=== PATIENT | female | born 1965 | race Caucasian/White ===

== ENCOUNTER 2018-11-20 11:51 | Emergency (ER) | payer BC, SELFPAY ==
[2018-11-20 11:59] VITALS: BP 124/66; PULSE 74; RESP 16; TEMP 36.5; O2SAT 98
[2018-11-20] MEDS: Balanced Salt Solution 15 ML BTL OP (13:01)
[2018-11-20] MEDS: Erythromycin Ophth Oint 3.5 GM TUBE OP (13:01)
--- NOTE | 2018-11-20 13:39 | ED.GENADUL_ITS ---
Discharge Plan Disposition Patient Disposition: HOME Condition: Stable Discharge Details Chief Complaint: EyeProblem Clinical Impression: Unspecified injury of right eye and orbit, initial encounter Primary Care Provider: Qiana Santos ED Provider: Ruben Elizabeth Home Meds and New Rx's Prescriptions: No Action cholecalciferol (vitamin D3) 5,000 unit/mL drops 5,000 unit PO DAILY RF: 0 magnesium 30 mg tablet 30 mg PO DAILY RF: 0 Adult 50+ Probiotic 4 billion cell capsule 4,000 mmu cells PO DAILY RF: 0 Antacid Ultra Strength 430 mg calcium (1,000 mg) tablet,chewable PO RF: 0 vitamin B complex capsule 1 cap PO DAILY RF: 0 citalopram 10 mg tablet 10 mg PO DAILY Qty: 60 RF: 0 estradiol 0.5 mg tablet 0.5 mg PO DAILY Qty: 90 RF: 0 Discharge Instructions Instructions: Erythromycin (Into the eye), Corneal Abrasion (ED) Additional Instructions: Please use the provided eye ointment 4 times daily for the next 5 days. It is strongly encourage that you follow-up for reassessment of your eye in 24 hours by specialist. If you are having any difficulty with this please contact care management or [facility] directly for arrangement of reassessment. Stand Alone Forms: Work Release Referrals: [facility] [Outside] Discharge Data Discharge Date/Time-TO BE ENTERED AT DEPARTURE: 11/20/18 14:00 Medical Decision Making Patient presenting to the emergency department for chief complaint of right eye injury. Patient states on Wednesday her cat was lying close to her and was startled when he got up to run it actually scratched the lateral aspect of her right eye. Patient thought this was minor but this morning she woke up with crusting and drainage to the right eye and significant increase of redness. Patient denies any other injury or trauma. Patient has diffuse injection and erythema to the sclera and conjunctive a. Good lamp and slit lamp examination do not show an obvious area of dye uptake but slightly it does show diffuse inflammatory changes and irritation. Patient states that she has significant difficulty with eyedrops so patient was placed up on erythromycin ointment 4 times daily for 5 days but given type of trauma and significant erythema she was informed that she should follow-up for a reassessment tomorrow with her case technician. Patient does state that she has an case technician in [place] but lives in [facility]. Patient was given [facility] contact information if she is unable to obtain appointment she was given care management contact information to help arrange appointment if necessary. Patient does state that she had a tetanus within the last 3 years. HPI General Mode of arrival: ambulatory . Date/Time Provider Initiated Documentation: 11/20/18 12:01 . Limitations to Documentation: no limitations . Information obtained by: patient and RN notes reviewed . History of Present Illness 53 year old F presents to the emergency department with the chief complaint of right eye injury, described as moderate, with intensity rated at 6. Quality is described as aching and sharp, and is localized to the eyes and right. Patient started experiencing this day(s) (3) and it has been constant. No relieving factors improve symptom(s), Patient notes no other symptoms.. Patient did receive the following treatments prior to arrival, none Related Data Home Medications Medication Instructions Recorded Confirmed calcium carbonate 430 mg calcium PO tab 11/22/18 11/22/18 (1,000 mg) chewable tablet cholecalciferol (vitamin D3) 5,000 5,000 unit PO DAILY 11/22/18 11/22/18 unit/mL oral drops citalopram 10 mg tablet 10 mg PO DAILY #60 tab 11/22/18 11/22/18 lactobacillus combination no.9 4 4,000 mmu cells PO DAILY 11/22/18 11/22/18 billion cell capsule magnesium 30 mg tablet 30 mg PO DAILY 11/22/18 11/22/18 vitamin B complex capsule 1 cap PO DAILY 11/22/18 11/22/18 estradiol 0.5 mg tablet 0.5 mg PO DAILY #90 tab-cap 11/23/18 Previous Rx's Medication Instructions Recorded citalopram 10 mg tablet 10 mg PO DAILY #60 tab 11/22/18 estradiol 0.5 mg tablet 0.5 mg PO DAILY #90 tab-cap 11/23/18 Allergies Allergy/AdvReac Type Severity Reaction Status Date / Time No Known Allergies Allergy Unverified 11/22/18 11:30 General Stated Complaint: EyeProblem JOANN: 4 Review of Systems Constitutional Denies body ache(s), Denies chills, Denies fever(s) and Denies headache(s) Eyes Reports as per HPI, Denies blurry vision and Denies loss of vision ENT Denies headache(s) Integumentary/Breasts Denies rash Neurologic Denies headache(s) and Denies loss of vision PFSH Surgical History vein stripping Social History Smoking/Tobacco Use Status: Never Drug use: Never Do you feel safe in your relationship?: Yes Exam Const General: cooperative, no acute distress and not ill appearing Orientation: alert, awake and oriented x3 HENMT Mouth: moist mucous membranes Eyes Visual Rothman: normal visual rothman by confrontation Alignment and Position: alignment normal Periorbital: periorbital findings normal Eyelids: eyelids normal Conjunctivae: conjunctival abnormality right conjunctival injection diffuse Sclera: scleral abnormality right scleral injection diffuse and lateral and scleral tenderness Cornea: corneas normal Pupils: PERRL, normal by confrontation and accommodation normal EOM: EOM intact bilaterally and No nystagmus Direct ophthalmoscopy: anterior chamber normal Resp Effort & Inspection: normal respiratory effort, able to speak in complete sentences and no respiratory distress Neuro General: alert, awake and oriented x3 Cranial Nerves: no nystagmus Course Vital Signs Temperature 36.5 C 11/20/18 11:59 Pulse 74 11/20/18 11:59 Respiratory Rate 16 11/20/18 11:59 Blood Pressure 124/66 11/20/18 11:59 Pulse Oximetry 98 11/20/18 11:59 Temperature 36.5 C 11/20/18 11:59 Temperature Source Temporal Artery Scan 11/20/18 11:59 Pulse 74 11/20/18 11:59 Respiratory Rate 16 11/20/18 11:59 Respiratory Effort Non-Labored 11/20/18 12:01 Blood Pressure 124/66 11/20/18 11:59 Blood Pressure Position Sitting 11/20/18 11:59 Pulse Oximetry 98 11/20/18 11:59 Oxygen Delivery Method Room Air 11/20/18 11:59 Oxygen Flow Rate 0 11/20/18 11:59
== END 2018-11-20 14:00 | disposition home or self-care (01) ==
PROVIDERS: Emergency Provider Nurse Practitioner Family; PCP Nurse Practitioner Family
DX: S05.91XA Unspecified injury of right eye and orbit, initial encounter (principal)
CPT/HCPCS: 99283

== ENCOUNTER 2018-12-16 02:26 | Outpatient (CLI) | payer BC, SELFPAY ==
--- NOTE | 2018-12-16 09:10 | DI.MAMMO_ITS ---
SYMPTOMS/DIAGNOSIS: SCREENING, Z12.31 MAMMOGRAM: Mammograms were interpreted according to the usual protocol including computer analysis with CAD system, tomosynthesis and C view imaging. The breasts are heterogeneously dense. No dominant mass or clumped microcalcification is identified in either breast. The previously noted well circumscribed upper outer quadrant mass of the left breast is markedly decreased in size and this was reportedly previously identified as a cyst. No new mass seen. No clumped microcalcification seen. No other significant change in appearance in comparison with previous examinations including September 2016. CONCLUSION: No specific evidence of malignancy at this time. Routine screening examinations are suggested at yearly intervals in this age group according to the ACS/ACR guidelines. Category I. Breast density Category C. MQSA ASSESSMENT OF FINDINGS: Negative. Category 1. Patient will receive a letter notifying them of these results. Bi-RADS category C. The breasts are heterogeneously dense, which may obscure small masses.
== END 2018-12-16 02:46 ==
PROVIDERS: PCP Nurse Practitioner Family; Visit Provider Obstetrics & Gynecology
DX: Z12.31 Encounter for screening mammogram for malignant neoplasm of breast (principal); N60.02 Solitary cyst of left breast
CPT/HCPCS: 77063; 77067

== ENCOUNTER 2020-01-03 14:34 | Outpatient (REF) | payer BC, SELFPAY ==
[2020-01-03 15:17] LABS: Bilirubin Negative (Negative); Blood Trace-lysed (Negative); Clarity Clear (Clear); Glucose Negative (Negative); Ketones Negative (Negative); Leukocyte Esterase Negative (Negative); Nitrite Negative (Negative); Specific Gravity >= 1.030 (1.005-1.025); Urobilinogen 0.2 EU/dL (Up TO 0.2)
[2020-01-03 15:35] LABS: Bacteria Negative HPF (Negative); C & S Indicated? No; Casts Negative LPF (Negative); Crystals Negative HPF (Negative); Epithelial Cells Rare HPF (Negative); Mucus Negative (Negative); Other Cells Negative (Negative); RBC 0-2 HPF (0-2); WBC 0-2 HPF (0-5)
== END 2020-01-03 14:54 ==
LOC: NCHCN 14:34
PROVIDERS: PCP Nurse Practitioner Family; Visit Provider Family Medicine
DX: N39.41 Urge incontinence (principal)
CPT/HCPCS: 81003; 81015

== ENCOUNTER 2020-03-13 18:02 | Outpatient (REF) | payer BC, SELFPAY ==
[2020-03-13 17:08] LABS: HCT 41.9 % (36.0-46.0); HGB 13.7 g/dL (12.0-15.5); Mean Corp. HGB Concentration 32.7 g/dL (32.0-36.0); Mean Corpuscular Hemoglobin 31.1 pg (27.0-33.0); Mean Corpuscular Volume 95.2 fL (80-95); Mean Platelet Volume 11.5 fL (8.0-11.0); Platelet Count 263 x1000/uL (130-400); RBC Distribution Width 13.1 % (11.7-14.6); White Blood Cell Count 4.58 k/cumm (4.4-10.8)
[2020-03-13 17:27] LABS: ALT 38 U/L (14-59); AST 25 U/L (15-37); Albumin 4.1 g/dL (3.4-5.0); Alkaline Phosphatase 69 U/L (46-116); Anion Gap 9.1 mmol/L (3-11); BUN 15 mg/dL (7-18); Bilirubin, Total 0.3 mg/dL (0.2-1.0); CO2 28.9 mmol/L (21.0-32.0); CREATININE 0.81 mg/dL (0.55-1.02); Calcium 9.3 mg/dL (8.5-10.1); Chloride 100 mmol/L (98-107); Glucose 91 mg/dL (74-106); Potassium 4.1 mmol/L (3.5-5.1); Sodium 138 mmol/L (136-145); TSH (W/Ref FT4) 2.12 uIU/mL (0.36-3.74); Total Protein 7.8 g/dL (6.4-8.2)
[2020-03-13 17:55] LABS: Bilirubin Negative (Negative); Blood Negative (Negative); Clarity Clear (Clear); Glucose Negative (Negative); Ketones Negative (Negative); Leukocyte Esterase Trace (Negative); Nitrite Negative (Negative); Specific Gravity 1.015 (1.005-1.025); Urobilinogen 0.2 EU/dL (Up TO 0.2)
[2020-03-13 18:20] LABS: RBC Negative HPF (0-2)
[2020-03-13 18:21] LABS: Bacteria Few HPF (Negative); C & S Indicated? C&S Done As Ordered; Casts Negative LPF (Negative); Crystals Negative HPF (Negative); Epithelial Cells Rare HPF (Negative); Mucus Negative (Negative); Other Cells Negative (Negative)
== END 2020-03-13 18:22 ==
LOC: NCHCN 18:02
PROVIDERS: PCP Nurse Practitioner Family; Visit Provider Family Medicine
DX: N39.41 Urge incontinence (principal); R53.83 Other fatigue; R30.0 Dysuria
CPT/HCPCS: 80053; 85027; 81003; 81015; 84443; 87086

== ENCOUNTER 2020-04-18 14:41 | Outpatient (REF) | payer BC, SELFPAY ==
[2020-04-18 15:35] LABS: Bilirubin Negative (Negative); Blood Trace-intact (Negative); Clarity Sl Cloudy (Clear); Glucose Negative (Negative); Ketones Negative (Negative); Leukocyte Esterase Small (Negative); Nitrite Negative (Negative); Specific Gravity 1.025 (1.005-1.025); Urobilinogen 0.2 EU/dL (Up TO 0.2)
[2020-04-18 15:59] LABS: Bacteria Moderate HPF (Negative); C & S Indicated? C&S Done As Ordered; Casts Negative LPF (Negative); Crystals Negative HPF (Negative); Epithelial Cells Few HPF (Negative); Mucus Negative (Negative); RBC 0-2 HPF (0-2)
== END 2020-04-18 15:01 ==
LOC: NCHCN 14:41
PROVIDERS: PCP Nurse Practitioner Family; Visit Provider Nurse Practitioner
DX: R30.0 Dysuria (principal)
CPT/HCPCS: 87077; 81003; 81015; 87086; 87186

== ENCOUNTER 2020-05-02 00:46 | Outpatient (CLI) | payer BC, SELFPAY ==
--- NOTE | 2020-05-02 | DI.MAMMO_ITS ---
EXAM: MAMMO SCREENING CLINICAL HISTORY: SCREENING, [facility],Z00.00 TECHNIQUE: Mammograms were interpreted according to the usual protocol including computer analysis w [employer] CAD system, tomosynthesis and C-view imaging. COMPARISON: 2015 through 2019. FINDINGS: The breasts are composed of heterogeneously dense fibroglandular densities, Breast Density category C . No suspicious masses or suspicious microcalcifications are seen. There is an area circumscribed nodu larity in the upper inner quadrant of left breast, previously noted to represent a cyst. No skin thickening or abnormal axillary lymph nodes are seen. There has been no significant change from prior exams. IMPRESSION: BI-RADS Category 2 - Benign Findings Yearly screening mammography is recommended. Breast Density Category C, heterogeneously dense tissue which decreases the sensitivity of the mammog julián. The mammogram demonstrates the patient's breast tissue is dense. Dense breast tissue is very common a nd is not abnormal but dense breast tissue can make it harder to find cancer on a mammogram. Also, de nse breast tissue may increase breast cancer risk. This information about the result of the mammogram report was provided to the patient to raise their awareness. Use this report when you speak with the patient about their risks for breast cancer, which includes their family history. At that time, you may recommend additional screening tests (Ultrasound or MRI) as they might be useful based on their r isk. A negative radiographic report should not delay biopsy if a dominant or clinically suspicious mass is present. Up to ten percent of cancers are not identified on mammography. A negative report may reinforce clinical impression. Adenosis and dense breasts may obscure an underlying neoplasm. False positive reports average 6 to 10%.
== END 2020-05-02 01:06 ==
PROVIDERS: PCP Nurse Practitioner; Visit Provider Nurse Practitioner Family
DX: Z12.31 Encounter for screening mammogram for malignant neoplasm of breast (principal); R92.2 Inconclusive mammogram; N60.02 Solitary cyst of left breast
CPT/HCPCS: 77063; 77067

== ENCOUNTER 2020-05-24 16:56 | Outpatient (REF) | payer MEDICAID, SELFPAY ==
[2020-05-24 20:06] LABS: Bilirubin Negative (Negative); Blood Negative (Negative); Clarity Sl Cloudy (Clear); Glucose Negative (Negative); Ketones Negative (Negative); Leukocyte Esterase Small (Negative); Nitrite Positive (Negative); Specific Gravity 1.015 (1.005-1.025); Urobilinogen 0.2 EU/dL (Up TO 0.2)
[2020-05-24 20:13] LABS: RBC 0-2 HPF (0-2)
[2020-05-24 20:14] LABS: Bacteria Moderate HPF (Negative); C & S Indicated? Yes; Casts Negative LPF (Negative); Crystals Negative HPF (Negative); Epithelial Cells Few HPF (Negative); Mucus Negative (Negative)
== END 2020-05-24 17:16 ==
LOC: NCHCN 16:56
PROVIDERS: PCP Nurse Practitioner; Visit Provider Nurse Practitioner Family
DX: R30.0 Dysuria (principal)
CPT/HCPCS: 81003; 81015; 87086

== ENCOUNTER 2020-11-22 21:28 | Outpatient (REF) | payer MEDICAID, SELFPAY | END 2020-11-22 21:29 | disposition home or self-care (01) | LOC: NCHCN 21:28 | PROVIDERS: PCP Nurse Practitioner; Visit Provider Physician Assistant | DX: N39.0 Urinary tract infection, site not specified (principal) | CPT/HCPCS: 87086 ==

== ENCOUNTER 2021-06-14 13:38 | Outpatient (REF) | payer BC, MEDICAID, SELFPAY | END 2021-06-14 13:39 | disposition home or self-care (01) | LOC: LBN 13:38 | PROVIDERS: PCP Nurse Practitioner; Visit Provider Physician Assistant Medical | DX: R30.0 Dysuria (principal); N39.41 Urge incontinence | CPT/HCPCS: 87086 ==

== ENCOUNTER 2021-10-15 16:19 | Outpatient (REF) | payer BC, MEDICAID, SELFPAY ==
--- OUTSIDE RECORDS SUMMARY | 2021-10-15 16:25 | XMS_ITS ---
:1965 Author Care Team Providers Name Role Phone KATHIA HOLDEN APRN Primary Care Provider [phone] Allergies Code Code System Name Reaction Severity Status Onset [id number] RxNorm Keflex ? ? Active ? Medications Name Status Start Date Stop Date ? ? Calcium 500 Active ? Not available 1 tablet daily estradiol 0.5 mg tablet Active ? Not avai lable 1 tablet daily ibuprofen 600 mg tablet Completed ? 03/17/20 Lexapro 10 mg tablet Completed 08/27/2005 12/31/2016 1 (one) Tablet: Daily loratadine 10 mg tablet Active ? Not avai lable Take 1 tablet every day by oral route as needed. vitamin E 400 unit capsule Completed ? 02/03 Vitamins B Complex tablet Completed 12/07/20162016 1 (one) Tablet Tablet: qd - daily Problems Name Status Onset Date Source ? Depressive Disorder Active ? History Toxic Polyneuropathy Active ? History Disorder of Upper Respiratory System Active ? History Urinary Incontinence Active ? History Genitourinary Symptoms Active ? History Reduced Libido Active ? History Adult Health Examination Active ? History SNOMED CT Concept Active ? History Procedure by Method Active ? History Breast Lump Active ? History Procedures Date Name Performed by ? 09/02/2016 Hysterectomy Information not avai lable Notes: Total Vaginal Notes: Bladder Prolapse repair Results Lab Results Date Name Specimen Result Interpretation Description Value Range Status Address ? 07/06/2017 Culture, UR ? Final microbiology ? Final [place] Urine results [facility] (Internal) : [address] 07/06/2017 Urinalysis, UR ? UA-WBC 0-3 [hpf] 0-3 [hpf] F inal [place] Microscopic Count [facility] (Internal) : [address] ? ? UR ? UA-RBC 0-2 [hpf] 0-2 [hpf] Final Nor [facility] (Internal) : [address] ? ? UR ABNORMAL UA-liliana few [hpf] none seen Final N orth teria [hpf] [facility] ab (Internal) : [address] ? ? UR ABNORMAL UA-epi few [hpf] none seen Final N orth thelial [hpf] [facility] ab (Internal) : [address] ? ? UR ABNORMAL UA-muc moderate none seen Final No rth us [hpf] [hpf] [facility] ab (Internal) : [address], [place] 07/06/2017 Urinalysis, UR ? UA-col yellow pale Final [facility] Dipstick, or yellow [facility] (Internal) : [address] ? ? UR ? UA-vijay clear clear Final [place] ear [facility] (Internal) : [address] ? ? UR ? UA-glu negative negative Final [facility] (Internal) : [address] [place] ? ? UR ? UA-laura negative negative Final [place] i [facility] ab (Internal) : [address] [place] ? ? UR ? UA-ket negative negative Final [facility] ab (Internal) : [address] ? ? UR ? UA-spe 1.020 1.003-1.0 Final [place] c Grav 35 [facility] (Internal) : [address] [place] ? ? UR ABNORMAL UA-blo trace negative Final [facility] ab (Internal) : [address] [place] ? ? UR ? UA-pH 5.0 [pH] 4.6-8.0 Final [place] [pH] [facility] (Internal) : [address] [place] ? ? UR ? UA-pro negative negative Final [place] t [facility] ab (Internal) : [address] [place] ? ? UR ? UA-uro normal normal Final [facility] ab (Internal) : [address] [place] ? ? UR ? UA-nit negative negative Final [place] rite [facility] (Internal) : [address] ? ? UR ? UA-aylin negative negative Final [place] k Est [facility] (Internal) : [address] 01/21/2017 Venipuncture BLD ? Venpn* ? ? Final [facility] (Internal) : [address] 01/21/2017 Lipase, Serum S ? Lip 81 U/L 23-300 Final North or Plasma U/L [facility] (Internal) : [address] 01/21/2017 CMP, Serum or S ? g/r 87 mg/dL 74-106 Lisa l [facility] Plasma mg/dL [facility] ([facility]) : [address] t ? ? S ? Bun 16 mg/dL 7-17 Final [place] mg/dL [facility] (Internal) : [address] t ? ? S ? Crea 0.60 mg/dL 0.52-1.04 Final Nor th mg/dL [facility] (Internal) : [address] t ? ? S ? Ca 9.5 mg/dL 8.4-10.2 Final [facility] mg/dL [facility] ([facility]) : [address] t ? ? S ? Na 139 mmol/L 137-145 Final [place] mmol/L [facility] (Internal) : [address] t ? ? S ? K 3.8 mmol/L 3.5-5.1 Final [place] mmol/L [facility] (Internal) : [address] t ? ? S ? Cl 100 mmol/L 98-107 Final [place] mmol/L [facility] (Internal) : [address] t ? ? S ? Tco2 27.0 mmol/L 22.0-30.0 Final No rth mmol/L [facility] (Internal) : [address] t ? ? S ? Tp 8.2 g/dL 6.3-8.2 Final [facility] g/dL [facility] (Internal) : [address] t ? ? S ? Alb 4.3 g/dL 3.5-5.0 Final [facility] g/dL [facility] (Internal) : [address] t ? ? S ? Tbil 0.5 mg/dL 0.2-1.3 Final [place] mg/dL [facility] (Internal) : [address] ? ? S ? Alp 52 U/L 50-136 Final [place] U/L [facility] (Internal) : [address] ? ? S ? Alt 24 U/L 9-52 U/L Final [place] (Sgpt) [facility] (Internal) : [address] ? ? S ? Ast 22 U/L 14-36 U/L Final [place] (Sgot) [facility] (Internal) : [address] t 01/21/2017 CBC W/ Auto BLD ? Wbc 7.1 10*3/uL 5.0-10.0 F inal [place] Diff 10*3/uL [facility] (Internal) : [address] t ? ? BLD ? Rbc 4.36 10*6/uL 4.10-5.30 Final N orth 10*6/uL [facility] (Internal) : [address] ? ? BLD ? Hgb 13.7 g/dL 12.0-16.0 Final Nort h g/dL [facility] (Internal) : [address] ? ? BLD ? Hct 40.7 % 37.0-47.0 Final [facility] (Internal) : [address] ? ? BLD ? Mcv 93.3 fL 80.0-96.0 Final [facility] (Internal) : [address] ? ? BLD ? Mch 31.4 pg 26.0-32.0 Final [place] pg [facility] (Internal) : [address] ? ? BLD ? Mchc 33.7 g/dL 31.0-35.0 Final Nort h g/dL [facility] (Internal) : [address] t ? ? BLD ? Rdw 12.4 % 11.5-14.5 Final [facility] (Internal) : [address] t ? ? BLD ? Plt 223 10*3/uL 130-450 Final Nort h 10*3/uL [facility] (Internal) : [address] ? ? BLD ? Anc 4.61 10*3/uL ? Final Nort h [facility] ab (Internal) : [address] [place] ? ? BLD ? Neutro 64.9 % 40.0-75.0 Final [facility] ab (Internal) : [address] ? ? BLD ? Lymph 28.1 % 20.0-50.0 Final [facility] ab (Internal) : [address] ? ? BLD ? Coryell 5.6 % 2.0-10.0 Final [facility] ab (Internal) : [address] [place] ? ? BLD Low Eos 0.8 % 1.0-6.0 % Final [facility] ab (Internal) : [address] [place] ? ? BLD ? Baso 0.3 % 0.0-1.0 % Final [facility] ab (Internal) : [address] ? ? BLD ? Ig 0.3 % 0.0-0.9 % Final [facility] ab (Internal) : [address] t 01/21/2017 Urinalysis, UR ? UA-WBC 0-3 [hpf] 0-3 [hpf] F inal [place] Microscopic Count [facility] ab (Internal) : [address] ? ? UR ? UA-RBC 0-2 [hpf] 0-2 [hpf] Final Nor th [facility] ab (Internal) : [address] ? ? UR ? UA-liliana rare [hpf] none seen Final No rth teria [hpf] [facility] ab (Internal) : [address] ? ? UR ? UA-epi rare [hpf] none seen Final No rth thelial [hpf] [facility] ab (Internal) : [address] ? ? UR ? UA-muc none seen none seen Final Nor th us [hpf] [hpf] [facility] ab (Internal) : [address] 01/21/2017 Urinalysis, UR ? UA-col pale yellow pale Fi nal [place] Dipstick, or yellow [facility] (Internal) : [address], [place] ? ? UR ? UA-vijay clear clear Final [place] ear [facility] (Internal) : [address], [place] ? ? UR ? UA-spe 1.015 1.003-1.0 Final [place] c Grav 35 [facility] (Internal) : [address], [place] ? ? UR ? UA-pH 5.5 [pH] 4.6-8.0 Final [place] [pH] [facility] (Internal) : [address], [place] ? ? UR ? UA-aylin negative negative Final [place] k Est [facility] (Internal) : [address], [place] ? ? UR ? UA-nit negative negative Final [place] rite [facility] (Internal) : [address], [place] ? ? UR ? UA-pro negative negative Final [place] t [facility] (Internal) : [address] [place] ? ? UR ? UA-glu negative negative Final [place] c [facility] (Internal) : [address] [place] ? ? UR ? UA-ket negative negative Final [place] one [facility] (Internal) : [address] [place] ? ? UR ? UA-uro normal normal Final [place] laura [facility] (Internal) : [address] [place] ? ? UR ? UA-laura negative negative Final [place] i [facility] (Internal) : [address] [place] ? ? UR ABNORMAL UA-blo trace negative Final [place] od [facility] (Internal) : [address] [place] Past Encounters None recorded. Social History Tobacco Smoking Status Never Smoker Vaccine List Vaccine Type Td (adult), adsorbed 08/27/2005 Plan of Care Reminders Provider Appointments None ? ? recorded. Lab None ? ? recorded. Referral None ? ? recorded. Procedures None ? ? recorded. Surgeries None ? ? recorded. Imaging None ? ? recorded. Vitals 03/17/2018 05:00PM Acute 40 Height Weight BMI Blood Pressure 167.64 cm 60.87 kg 21.7 kg/m2 106/64 mm[Hg] 07/06/2017 Weight Blood Pressure 60.1 kg 110/68 mm[Hg] 05/31/2017 Weight Blood Pressure 60.01 kg 116/64 mm[Hg] 04/12/2017 Height Weight Blood Pressure 167.64 cm 59.92 kg 105/62 mm[Hg] 03/03/2017 Weight Blood Pressure 62.19 kg 116/70 mm[Hg] 02/05/2017 Weight Blood Pressure 61.87 kg 120/72 mm[Hg] 12/31/2016 Height Weight Blood Pressure 170.18 cm 60.65 kg 118/68 mm[Hg] 12/03/2008 Height Weight Blood Pressure 166.37 cm 62.14 kg 98/60 mm[Hg] 12/09/2005 Height Weight Blood Pressure 167.64 cm 59.87 kg 102/58 mm[Hg] 11/03/2005 Weight Blood Pressure 60.33 kg 118/64 mm[Hg] 10/22/2005 Weight Blood Pressure 58.97 kg 102/60 mm[Hg] 08/27/2005 Weight Blood Pressure 57.38 kg 108/70 mm[Hg] 02/03/2005 Weight Blood Pressure 59.87 kg 96/64 mm[Hg] 10/10/2004 Height Weight Blood Pressure 167.64 cm 59.42 kg 98/62 mm[Hg]
[2021-10-16 20:36] LABS: COVID-19 RT-PCR UVMMC Result Positive (Negative)
== END 2021-10-15 16:20 | disposition home or self-care (01) ==
LOC: LBN 16:19
PROVIDERS: PCP Nurse Practitioner; Visit Provider Physician Assistant Medical
DX: Z20.822 Contact with and (suspected) exposure to COVID-19 (principal); J06.9 Acute upper respiratory infection, unspecified
CPT/HCPCS: U0003

== ENCOUNTER 2021-11-13 17:42 | Outpatient (REF) | payer MEDICAID, SELFPAY ==
[2021-11-13 12:15] LABS: Clarity Clear (Clear); Specific Gravity 1.015 (1.005-1.025)
[2021-11-13 12:28] LABS: Bacteria Few HPF (Negative); C & S Indicated? No/Sq. Contamination; Casts Negative LPF (Negative); Crystals Negative HPF (Negative); Epithelial Cells Moderate HPF (Negative); Mucus Trace (Negative); Other Cells Moderate Renal (Negative); WBC >50 HPF (0-5)
== END 2021-11-13 17:43 | disposition home or self-care (01) ==
LOC: LBN 17:42
PROVIDERS: PCP Nurse Practitioner; Visit Provider Physician Assistant
DX: R39.9 Unspecified symptoms and signs involving the genitourinary system (principal); N39.0 Urinary tract infection, site not specified
CPT/HCPCS: 81003; 81015

== ENCOUNTER 2021-11-21 16:28 | Outpatient (REF) | payer BC, SELFPAY ==
[2021-11-21 21:19] LABS: Bilirubin Negative (Negative); Blood Negative (Negative); Clarity Clear (Clear); Glucose 100 mg/dL (Negative); Ketones Negative (Negative); Leukocyte Esterase Negative (Negative); Nitrite Positive (Negative); Specific Gravity 1.025 (1.005-1.025); Urobilinogen 0.2 EU/dL (Up TO 0.2)
[2021-11-21 21:25] LABS: Bacteria Many HPF (Negative); C & S Indicated? C&S Done As Ordered; Casts Negative LPF (Negative); Crystals Negative HPF (Negative); Epithelial Cells Few HPF (Negative); Mucus Trace (Negative); WBC 20-50 HPF (0-5)
== END 2021-11-21 16:29 | disposition home or self-care (01) ==
LOC: LBN 16:28
PROVIDERS: PCP Nurse Practitioner; Visit Provider Physician Assistant
DX: R39.9 Unspecified symptoms and signs involving the genitourinary system (principal); N39.0 Urinary tract infection, site not specified
CPT/HCPCS: 87077; 81003; 81015; 87086; 87186

== ENCOUNTER 2021-11-26 19:19 | Outpatient (REF) | payer BC, MEDICAID, SELFPAY ==
[2021-11-26 20:25] LABS: Abs Immature Grans 0.01 10^3/uL (0.0-0.06); Absolute Basophil Count 0.01 10^3/uL (0.0-0.2); Absolute Eosinophil Count 0.05 10^3/uL (0.0-0.7); Absolute Lymphocyte Count 1.37 10^3/uL (1.2-3.4); Absolute Monocyte Count 0.32 10^3/uL (0.1-0.8); Absolute Neutrophil Count 6.32 10^3/uL (1.2-6.7); Basophils % 0.1; Eosinophils % 0.6; HCT 42.2 % (36.0-46.0); HGB 13.9 g/dL (11.2-15.7); Immature Grans % 0.1; MCH 30.8 pg (27.0-33.0); MCHC 32.9 % (32.0-36.0); MCV 93.6 fL (80-95); MPV 11.3 fL (8.0-11.0); Neutrophils % 78.2; Nucleated RBC 0 %; Platelet Count 272 10^3/uL (130-400); RBC 4.51 10^6/uL (3.93-5.22); RDW 12.8 % (11.7-14.6); RDW-SD 43.9 fL; WBC 8.08 10^3/uL (4.4-10.8)
[2021-11-26 20:27] LABS: Bilirubin Negative (Negative); Blood Negative (Negative); Clarity Clear (Clear); Glucose Negative (Negative); Ketones Negative (Negative); Leukocyte Esterase Negative (Negative); Nitrite Negative (Negative); Urobilinogen 0.2 EU/dL (Up TO 0.2)
[2021-11-26 20:36] LABS: ALT 78 U/L (14-59); AST 46 U/L (15-37); Albumin 4.3 g/dL (3.4-5.0); Alkaline Phosphatase 77 U/L (46-116); Anion Gap 7.2 mmol/L (3-11); BUN 19 mg/dL (7-18); Bilirubin, Total 0.4 mg/dL (0.2-1.0); CO2 28.8 mmol/L (21.0-32.0); CREATININE 0.8 mg/dL (0.55-1.02); Calcium 9.4 mg/dL (8.5-10.1); Chloride 104 mmol/L (98-107); Glucose 100 mg/dL (74-106); Potassium 4.4 mmol/L (3.5-5.1); Sodium 140 mmol/L (136-145); Total Protein 8.1 g/dL (6.4-8.2)
[2021-11-28 15:56] LABS: COVID-19 RT-PCR UVMMC Result Negative (Negative)
== END 2021-11-26 19:20 | disposition home or self-care (01) ==
LOC: NCHCN 19:19
PROVIDERS: PCP Nurse Practitioner; Visit Provider Nurse Practitioner Family
DX: R10.9 Unspecified abdominal pain (principal); R50.9 Fever, unspecified; N39.0 Urinary tract infection, site not specified; Z20.822 Contact with and (suspected) exposure to COVID-19
CPT/HCPCS: 80053; U0003; 81003; 85025

== ENCOUNTER → 2022-04-08 11:52 | Outpatient (CLI) | payer BC, MEDICAID, SELFPAY ==
--- NOTE | 2022-04-08 | DI.RAD_ITS ---
Exam(s) XR KNEE LT 3V AP,LAT,JERMAIEN EXAM: XR KNEE LT 3V AP,LAT,JERMAINE CLINICAL HISTORY: KNEE PAIN: LEFT; ACUTE--M25.562. TECHNIQUE: 2D digital imaging was performed of the left knee. Three images were obtained. AP, late ral and PA tunnel views were obtained. COMPARISON: No exams were available for comparison FINDINGS: BONES: No acute fracture is present. No bony destructive lesion is seen. JOINTS: The knee is normally aligned. There is a small joint effusion. SOFT TISSUE: Normal. IMPRESSION: 1. No acute fracture or dislocation. 2. Small joint effusion. DATA REPOSITORY: RADIATION DOSE DELIVERED:
== END ==
PROVIDERS: PCP Nurse Practitioner; Visit Provider Nurse Practitioner Family
DX: M25.462 Effusion, left knee (principal)
CPT/HCPCS: 73562

== ENCOUNTER 2022-04-30 14:37 | Outpatient (REF) | payer BC, MEDICAID, SELFPAY ==
[2022-04-30 20:56] LABS: Bilirubin Negative (Negative); Blood Trace-intact (Negative); Clarity Sl Cloudy (Clear); Glucose Negative (Negative); Ketones Negative (Negative); Leukocyte Esterase Small (Negative); Nitrite Positive (Negative); Urobilinogen 0.2 EU/dL (Up TO 0.2)
[2022-04-30 21:11] LABS: Bacteria Many HPF (Negative); C & S Indicated? Yes; Crystals Negative HPF (Negative); Epithelial Cells Moderate HPF (Negative); Mucus Negative (Negative); Other Cells Few Transitional (Negative); WBC >50 HPF (0-5)
== END 2022-04-30 14:38 | disposition home or self-care (01) ==
LOC: LBN 14:37
PROVIDERS: PCP Nurse Practitioner; Visit Provider Physician Assistant
DX: R39.9 Unspecified symptoms and signs involving the genitourinary system (principal)
CPT/HCPCS: 87077; 81003; 81015; 87086; 87186

== ENCOUNTER 2022-07-23 15:15 | Outpatient (REF) | payer BC, MEDICAID, SELFPAY ==
[2022-07-23 15:54] LABS: Abs Immature Grans 0.01 10^3/uL (0.0-0.06); Absolute Basophil Count 0.02 10^3/uL (0.0-0.2); Absolute Eosinophil Count 0.08 10^3/uL (0.0-0.7); Absolute Lymphocyte Count 2.67 10^3/uL (1.2-3.4); Absolute Monocyte Count 0.34 10^3/uL (0.1-0.8); Basophils % 0.4; Eosinophils % 1.6; HCT 40.5 % (36.0-46.0); HGB 13.2 g/dL (11.2-15.7); Immature Grans % 0.2; Lymphocytes % 53.2; MCH 30.8 pg (27.0-33.0); MCHC 32.6 % (32.0-36.0); MCV 95 fL (80-95); MPV 11.2 fL (8.0-11.0); Monocytes % 6.8; Neutrophils % 37.8; Platelet Count 227 10^3/uL (130-400); RBC 4.28 10^6/uL (3.93-5.22); RDW 12.7 % (11.7-14.6); RDW-SD 44.3 fL; WBC 5.02 10^3/uL (4.4-10.8)
[2022-07-23 16:36] LABS: ALT 27 U/L (14-59); AST 18 U/L (15-37); Alkaline Phosphatase 81 U/L (46-116); Anion Gap 10.6 mmol/L (3-11); BUN 18 mg/dL (7-18); Bilirubin, Total 0.3 mg/dL (0.2-1.0); CO2 26.4 mmol/L (21.0-32.0); CREATININE 0.8 mg/dL (0.55-1.02); Calcium 9.8 mg/dL (8.5-10.1); Calculated LDL 133 mg/dL (<100); Chloride 102 mmol/L (98-107); Cholesterol 230 mg/dL (<200); Estimated GFR 85.89 (mL/min/1.73m2); Glucose 85 mg/dL (74-106); HDL Cholesterol 53 mg/dL (40-60); Potassium 4.1 mmol/L (3.5-5.1); Sodium 139 mmol/L (136-145); Total Protein 7.7 g/dL (6.4-8.2); Triglyceride 221 mg/dL (<150)
== END 2022-07-23 15:16 | disposition home or self-care (01) ==
LOC: NCHCN 15:15
PROVIDERS: PCP Nurse Practitioner Family; Visit Provider Nurse Practitioner Family
DX: F32.9 Major depressive disorder, single episode, unspecified (principal); N39.41 Urge incontinence; Z00.00 Encounter for general adult medical examination without abnormal findings; Z13.220 Encounter for screening for lipoid disorders; Z13.1 Encounter for screening for diabetes mellitus
CPT/HCPCS: 80053; 80061; 85025

== ENCOUNTER → 2022-07-27 03:15 | Outpatient (CLI) | payer BC, MEDICAID, SELFPAY ==
--- NOTE | 2022-07-27 08:45 | DI.MAMMO_ITS ---
Exam(s) MAMMO SCREENING EXAM: MAMMO SCREENING CLINICAL HISTORY: screening, Z12.39. TECHNIQUE: Bilateral full field digital CC and MLO mammographic images were obtained with 3D tomosyn thesis and utilizing computer aided detection (CAD). COMPARISON: Prior mammograms were reviewed. FINDINGS: Fibroglandular tissue pattern is again noted be dense this somewhat decreasing the sensitivity mammog julián for finding hidden underlying lesions. Small benign-appearing nodules noted bilaterally minimal if any significant change compared to mammog michelle some nodules have decreased in size from prior mammograms, consistent with cysts. There are no new spiculated masses nor malignant appearing microcalcification groups. There is no significant architectural distortion nor skin thickening-retraction. IMPRESSION: Dense bilateral fibroglandular tissue. No obvious radiographic evidence of malignancy. BI-RADS Category 2 - Benign Findings Breast Density - Category C - Heterogeneously dense Breast density Category C or D implies that the patient has dense breast tissue. Dense breast tissue can make it harder to find cancer on a mammogram. Dense breast tissue is also associated with an incr eased risk of breast cancer. This information about the result of the mammogram report was provided to the patient to raise their awareness. Use this report when you speak with the patient about their risks for breast cancer, which includes their family history. At that time, you may recommend additional screening tests (Ultrasoun d or MRI) as these tests may add significant information. A negative radiographic report should not delay biopsy if a dominant or clinically suspicious mass is present. Up to ten percent of cancers are not identified on mammography. A negative report may reinforce clinical impression. Adenosis and dense breasts may obscure an underlying neoplasm. False positive reports average 6 to 10%. Patient will receive a letter notifying them of these results.
== END ==
PROVIDERS: PCP Nurse Practitioner Family; Visit Provider Nurse Practitioner Women's Health
DX: Z12.31 Encounter for screening mammogram for malignant neoplasm of breast (principal)
CPT/HCPCS: 77063; 77067

== ENCOUNTER 2022-07-28 18:29 | Outpatient (REF) | payer BC, MEDICAID, SELFPAY ==
[2022-07-28 22:35] LABS: Clarity Cloudy (Clear); Specific Gravity 1.015 (1.005-1.025)
[2022-07-28 22:37] LABS: Bacteria Few HPF (Negative); C & S Indicated? Yes; Crystals Negative HPF (Negative); Epithelial Cells Few HPF (Negative); Mucus Moderate (Negative); Other Cells Few Renal (Negative); WBC 20-50 HPF (0-5)
== END 2022-07-28 18:30 | disposition home or self-care (01) ==
LOC: LBN 18:29
PROVIDERS: PCP Nurse Practitioner Family; Visit Provider Physician Assistant
DX: R30.0 Dysuria (principal); R35.0 Frequency of micturition; N39.0 Urinary tract infection, site not specified
CPT/HCPCS: 87077; 81003; 81015; 87086; 87186

== ENCOUNTER → 2023-12-03 00:16 | Outpatient (CLI) | payer BC, SELFPAY ==
--- NOTE | 2023-12-03 08:32 | DI.MAMMO_ITS ---
Exam(s) MAMMO SCREENING EXAM: MAMMO SCREENING CLINICAL HISTORY: SCREENING, Z12.31. TECHNIQUE: Bilateral full field digital CC and MLO mammographic images were obtained with 3D tomosyn thesis and utilizing computer aided detection (CAD). COMPARISON: Prior mammograms were reviewed. FINDINGS: The fibroglandular tissue pattern is again noted be moderately dense. No obvious new right breast findings. In the retroareolar region of the left breast there is an asymmetric density possible nodule measurin g 11 by 9 mm, located in the immediate retroareolar region as seen on the CC view. Suggestion of ano ther nodule slightly more posteriorly seen on the MLO view same breast. There are no malignant-appearing microcalcification groups in either breast. There is no significant architectural distortion nor skin thickening-retraction. IMPRESSION: Moderately dense fibroglandular tissue. No obvious radiographic evidence of malignancy in the right breast. Left breast asymmetric densities-possible nodules. Spot compression CC and MLO views are recommended as well as breast ultrasound. BI-RADS Category 0 - Assessment Incomplete: Need additional imaging evaluation Breast Density - Category C - Heterogeneously dense Breast density Category C or D implies that the patient has dense breast tissue. Dense breast tissue can make it harder to find cancer on a mammogram. Dense breast tissue is also associated with an incr eased risk of breast cancer. This information about the result of the mammogram report was provided to the patient to raise their awareness. Use this report when you speak with the patient about their risks for breast cancer, which includes their family history. At that time, you may recommend additional screening tests (Ultrasoun d or MRI) as these tests may add significant information. A negative radiographic report should not delay biopsy if a dominant or clinically suspicious mass is present. Up to ten percent of cancers are not identified on mammography. A negative report may reinforce clinical impression. Adenosis and dense breasts may obscure an underlying neoplasm. False positive reports average 6 to 10%. Patient will receive a letter notifying them of these results.
== END ==
PROVIDERS: PCP Nurse Practitioner Family; Visit Provider Nurse Practitioner Family
DX: Z12.31 Encounter for screening mammogram for malignant neoplasm of breast (principal); R92.323 Mammographic fibroglandular density, bilateral breasts
CPT/HCPCS: 77063; 77067

== ENCOUNTER 2023-12-06 19:07 | Outpatient (REF) | payer BC, SELFPAY ==
[2023-12-06 20:02] LABS: Anion Gap 7.5 mmol/L (3-11); BUN 22 mg/dL (7-18); CO2 29.5 mmol/L (21.0-32.0); CREATININE 0.7 mg/dL (0.55-1.02); Calcium 9.3 mg/dL (8.5-10.1); Chloride 103 mmol/L (98-107); Estimated GFR 99.57 (mL/min/1.73m2); Glucose 95 mg/dL (74-106); Potassium 3.8 mmol/L (3.5-5.1); Sodium 140 mmol/L (136-145)
[2023-12-06 20:05] LABS: Calculated LDL 135 mg/dL (<100); Cholesterol 224 mg/dL (<200); HDL Cholesterol 59 mg/dL (40-60); Triglyceride 153 mg/dL (<150)
== END 2023-12-06 19:08 | disposition home or self-care (01) ==
LOC: NCHCN 19:07
PROVIDERS: PCP Nurse Practitioner Family; Visit Provider Nurse Practitioner Family
DX: Z00.00 Encounter for general adult medical examination without abnormal findings (principal); Z13.220 Encounter for screening for lipoid disorders; Z13.228 Encounter for screening for other metabolic disorders
CPT/HCPCS: 80048; 80061

== ENCOUNTER → 2023-12-08 03:35 | Outpatient (CLI) | payer BC, SELFPAY ==
--- NOTE | 2023-12-08 | DI.MAMMO_ITS ---
Exam(s) MG MAMMO SCREEN CALL BACK UNI US BREAST LT COMPLETE EXAM: MG MAMMO SCREEN CALL BACK UNI CLINICAL HISTORY: LEFT BREAST ASYMMETRIC DENSITIES-POSSIBLE NODULES R92.8 ABNL MAMMO. TECHNIQUE: Craniocaudal and mediolateral oblique spot compression digital Mammography views of the l eft breast followed by Tomosynthesis and left breast ultrasound. COMPARISON: MG DIAGNOSTIC BILAT MAMMO W/CAD from 09/17/2015 US US Breast Sonogram Left from 09/17/2015 MG Screening Bilat Mammo from 10/09/2016 MG MG mammo screening from 12/16/2018 MG MG MAMMO SCREENING from 05/02/2020 MG MG MAMMO SCREENING from 07/27/2022 MG MG MAMMO SCREENING from 12/03/2023 US US BREAST LT COMPLETE from 12/08/2023 FINDINGS: Mammography/Tomosynthesis: Spot compression CC and MLO views for performed. The areas of nodularity are less evident. Left breast US: Echotexture: Normal appearance of the glandular tissue. Shadowing: No suspicious foci. Cyst: None. Solid lesions: 6 millimeter circumscribed hypoechoic lesion 12 o'clock position 3 cm from the nipple. Adjacent 2 x 3 millimeter hypoechoic nodule. Additional hypoechoic circumscribed lesion 12 o'clock position 1 cm from the nipple. These could represent proteinaceous cyst. Ductal dilation: None dila chris ducts in the sub areolar region. No intraductal debris or masses. IMPRESSION: 1. No evidence of malignancy is noted. Recommend six-month follow-up mammogram and ultrasound. 2. The findings were discussed with the patient on the date of the examination. BI-RADS Category 3 - 6 month - Probably Benign Finding: Recommend follow-up mammography in 6 months Breast Density - Category C - Heterogeneously dense A mammogram that demonstrates density of C or D indicates the patient's breast tissue is dense. Dense breast tissue is very common and is not abnormal, but dense breast tissue can make it harder to find cancer on a mammogram. Also, dense breast tissue may increase their breast cancer risk. This informa tion about the result of the mammogram report was provided to the patient to raise their awareness. U se this report when you speak with the patient about their risks for breast cancer, which includes th eir family history. At that time, you may recommend for more screening tests (Ultrasound or MRI) as t hey might be useful based on their risk. A negative radiographic report should not delay biopsy if a dominant or clinically suspicious mass is present. Up to ten percent of cancers are not identified on mammography. A negative report may reinforce clinical impression. Adenosis and dense breasts may obscure an underlying neoplasm. False positive reports average 6 to 10%. Patient will receive a letter notifying them of these results.
== END ==
PROVIDERS: PCP Nurse Practitioner Family; Visit Provider Nurse Practitioner Family
DX: Z12.31 Encounter for screening mammogram for malignant neoplasm of breast (principal); R92.8 Other abnormal and inconclusive findings on diagnostic imaging of breast; N60.82 Other benign mammary dysplasias of left breast
CPT/HCPCS: 76642; 77063; 77067

== ENCOUNTER 2024-06-02 00:05 | Outpatient (CLI) | payer BC, SELFPAY ==
--- NOTE | 2024-06-02 | DI.US_ITS ---
Exam(s) MG MAMMO DIAGNOSTIC UNI US BREAST LT LIMITED EXAM: MG MAMMO DIAGNOSTIC UNI CLINICAL HISTORY: abnl imaging of lt breast, R92.8; 6 mm hypoechoic lesion 12:00 3 cm. COMPARISON: US US Breast Sonogram Left from 09/17/2015 MG DIAGNOSTIC BILAT MAMMO W/CAD from 09/17/2015 MG Screening Bilat Mammo from 10/09/2016 MG MG mammo screening from 12/16/2018 MG MG MAMMO SCREENING from 05/02/2020 MG MG MAMMO SCREENING from 07/27/2022 MG MG MAMMO SCREENING from 12/03/2023 MG MG MAMMO SCREEN CALL BACK UNI from 12/08/2023 US US BREAST LT COMPLETE from 12/08/2023 US US BREAST LT LIMITED from 06/02/2024 TECHNIQUE: Craniocaudal and mediolateral oblique Full Field Digital Mammography views of with Compu ter Aided Diagnosis followed by Tomosynthesis and breast ultrasound. FINDINGS: Mammography/Tomosynthesis: Masses/Architectural Distortion: Architectural distortion. Increased densities again noted in the griff[place] bareolar region of the left breast. Microcalcifications: No suspicious pleomorphic-type are seen. Skin Thickening/Nipple Retraction: None. Left breast US: Echotexture: Normal appearance of the glandular tissue. Shadowing: No suspicious foci. Cyst: Pneumonia [place] hypoechoic nodule again noted in the 12 o'clock position 3 cm from the nipple measuring 7 by 5 x 5 millimeters. Not significantly changed from prior. Adjacent high hypoechoic no dule measuring 3 millimeters, unchanged. Solid lesions: None seen. Ductal dilation: Stable ductal dilatation in the subareolar region. No debris within the ducts. No intraductal masses. IMPRESSION: 1. No evidence of malignancy is noted. 2. Unless there is more urgent need, follow-up screening mammography is recommended, as per [employer] guidelines. BI-RADS Category 2 - Benign Findings Breast Density - Category C - Heterogeneously dense Breast density category C or D implies that the patient has dense breast tissue. Dense breast tissue is very common and is not abnormal but dense breast tissue can make it harder to find cancer on a ma mmogram. Also, dense breast tissue may increase their breast cancer risk. This information about the result of the mammogram report was provided to the patient to raise their awareness. Use this report when you speak with the patient about their risks for breast cancer, which includes their family hist ory. At that time, you may recommend for more screening tests (Ultrasound or MRI) as they might be us eful based on their risk. A negative radiographic report should not delay biopsy if a dominant or clinically suspicious mass is present. Up to ten percent of cancers are not identified on mammography. A negative report may reinforce clinical impression. Adenosis and dense breasts may obscure an underlying neoplasm. False positive reports average 6 to 10%. Patient will receive a letter notifying them of these results.
== END 2024-06-02 00:25 ==
PROVIDERS: PCP Nurse Practitioner Family; Visit Provider Nurse Practitioner Family
DX: Z12.31 Encounter for screening mammogram for malignant neoplasm of breast (principal); R92.8 Other abnormal and inconclusive findings on diagnostic imaging of breast
CPT/HCPCS: 76642; 77061; 77065; G0279

== ENCOUNTER 2024-08-02 22:22 | Outpatient (REF) | payer BC, SELFPAY | END 2024-08-02 22:23 | disposition home or self-care (01) | LOC: LBN 22:22 | PROVIDERS: PCP Nurse Practitioner Family; Visit Provider Physician Assistant | DX: N39.0 Urinary tract infection, site not specified (principal) | CPT/HCPCS: 87077; 87086; 87186 ==

== ENCOUNTER 2025-06-05 00:41 | Outpatient (CLI) | payer BC, SELFPAY ==
--- NOTE | 2025-06-05 | DI.MAMMO_ITS ---
Exam(s) MAMMO SCREENING EXAM: MAMMO SCREENING CLINICAL HISTORY: SCREENING MAMMO Z12.39 TECHNIQUE: Bilateral full field digital CC and MLO mammographic images were obtained with 3D tomosynthesis and utilizing computer aided detection (CAD). COMPARISON: Comparison is made with prior examinations. FINDINGS: Masses/Architectural Distortion: No suspicious masses or areas of architectural distortion are present. Stable asymmetric densities are seen in the retroareolar regions in the left breast. Microcalcifications: No suspicious pleomorphic-type are seen. Skin Thickening/Nipple Retraction: None. IMPRESSION: 1. No significant interval change with no specific features of malignancy noted. 2. Unless there is more urgent need, screening mammography is recommended, as per [employer] guidelines. BI-RADS Category 2 - Benign Findings Breast Density - Category C - The breast are heterogeneously dense, which may obscure small masses. Breast density Category C or D implies that the patient has dense breast tissue. Dense breast tissue can make it harder to find cancer on a mammogram. Dense breast tissue is also associated with an increased risk of breast cancer. This information about the result of the mammogram report was provided to the patient to raise their awareness. Use this report when you speak with the patient about their risks for breast cancer, which includes their family history. At that time, you may recommend additional screening tests (Ultrasound or MRI) as these tests may add significant information. A negative radiographic report should not delay biopsy if a dominant or clinically suspicious mass is present. Up to ten percent of cancers are not identified on mammography. A negative report may reinforce clinical impression. Adenosis and dense breasts may obscure an underlying neoplasm. False positive reports average 6 to 10%. Patient will receive a letter notifying them of these results.
== END 2025-06-05 01:01 ==
PROVIDERS: PCP Nurse Practitioner Family; Visit Provider Nurse Practitioner Family
DX: Z12.31 Encounter for screening mammogram for malignant neoplasm of breast (principal)
CPT/HCPCS: 77063; 77067